=== PATIENT | female | born 1990 | race Caucasian/White ===

== ENCOUNTER 2016-02-23 23:25 | Emergency (ER) | payer OTHER ==
[~2016-02-23] VITALS: Ht 170.2 cm; Wt 127.0 kg
--- NOTE | ~2016-02-23 | EKG ---
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1990 Requested By: Trinh Schmidt Order Number: [id number] MD: Stanton Yu Measurements Intervals [place] Rate: 112 P: 49 VA: 137 QRS: 28 QRSD: 86 T: 14 QT: 332 QTc: 453 Interpretive Statements Sinus tachycardia Borderline T abnormalities, anterior leads No previous ECG available for comparison Electronically Signed On 02-24-2016 8:06:00 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
--- NOTE | ~2016-02-23 | EKG ---
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
[2016-02-24] LABS: ABSOLUTE NEUTROPHILS 8.9 thou/uL (1.4-8.2); BASOPHILS 0.6 % (0.0-2.0); EOSINOPHILS 2.8 % (0.0-3.0); HEMATOCRIT 35.5 % (37.0-47.0); HEMOGLOBIN 11.8 gm/dL (12.0-15.0); LYMPHOCYTES 21.4 % (24.0-44.0); MCH 25.5 pg (26.0-34.0); MCHC 33.2 % (28.0-37.0); MCV 76.7 fL (80.0-100.0); MONOCYTES 5.1 % (1.0-8.0); PLATELET COUNT 333 thou/uL (150-400); POLYS 70.1 % (36.0-66.0); RBC 4.63 mil/uL (4.20-5.00); RDW 16.4 % (10.5-14.5); WBC 12.7 thou/uL (4.0-11.0)
[2016-02-24 00:01] LABS: MANUAL DIFF NO
[2016-02-24 00:19] LABS: APTT 30.6 Seconds (24.5-32.8); PROTIME 10.6 Seconds (9.3-11.4)
[2016-02-24 00:22] LABS: ANION GAP 8 mmol/L (7-16); BUN 15 mg/dL (7-18); CALCIUM 9.2 mg/dL (8.5-10.1); CHLORIDE 99 mmol/L (98-107); CO2 29 mmol/L (21-32); CREATININE 0.7 mg/dL (0.6-1.3); GLUCOSE 113 mg/dL (70-99); POTASSIUM 3.9 mmol/L (3.5-5.1); SODIUM 136 mmol/L (136-145)
[2016-02-24 00:38] LABS: ALBUMIN 3.8 g/dL (3.4-5.0); ALKALINE PHOSPHATASE 101 U/L (46-116); MAGNESIUM 1.9 mg/dL (1.8-2.4); NT-PRO BRAIN NAT PEPTIDE 26 pg/mL (<300); SGOT 15 U/L (15-37); SGPT 43 U/L (30-65); TOTAL BILIRUBIN 0.2 mg/dL (<0.1-1.0); TOTAL PROTEIN 8.3 g/dL (6.4-8.2); TROPONIN-I < 0.04 ng/mL (<0.04-0.07)
[2016-02-24 00:56] VITALS: BP 137/66
== END 2016-02-24 01:13 | disposition home or self-care (01) ==
LOC: ER 23:25
PROVIDERS: Emergency Medicine
DX: I48.91 Unspecified atrial fibrillation (principal)